=== PATIENT | male | born 1940 ===

== ENCOUNTER 2023-06-17 10:56 | Outpatient (RCR) | payer MEDICARE, SELFPAY | END 2023-06-18 23:59 | disposition home or self-care (01) | LOC: CR 10:56 | PROVIDERS: Visit Provider Internal Medicine Cardiovascular Disease | DX: I21.4 Non-ST elevation (NSTEMI) myocardial infarction (principal) ==

== ENCOUNTER 2023-07-15 10:19 | Outpatient (RCR) | payer MEDICARE, OTHER, SELFPAY | END 2023-07-19 23:59 | disposition home or self-care (01) | LOC: CR 10:19 | PROVIDERS: Visit Provider Internal Medicine Cardiovascular Disease | DX: I25.2 Old myocardial infarction (principal); Z95.2 Presence of prosthetic heart valve; Z51.89 Encounter for other specified aftercare | CPT/HCPCS: S9472 ==

== ENCOUNTER 2023-08-17 10:19 | Outpatient (RCR) | payer MEDICARE, OTHER, SELFPAY | END 2023-08-19 23:59 | disposition home or self-care (01) | LOC: CR 10:19 | PROVIDERS: Visit Provider Internal Medicine Cardiovascular Disease | DX: I25.2 Old myocardial infarction (principal); Z51.89 Encounter for other specified aftercare | CPT/HCPCS: S9472 ==

== ENCOUNTER 2023-09-11 10:24 | Outpatient (RCR) | payer MEDICARE, OTHER, SELFPAY | END 2023-09-17 23:59 | disposition home or self-care (01) | LOC: CR 10:24 | PROVIDERS: Visit Provider Internal Medicine Cardiovascular Disease | DX: I21.4 Non-ST elevation (NSTEMI) myocardial infarction (principal); Z51.89 Encounter for other specified aftercare | CPT/HCPCS: S9472 ==

== ENCOUNTER 2023-10-16 10:09 | Outpatient (RCR) | payer MEDICARE, OTHER, SELFPAY ==
--- NOTE | 2023-10-07 16:01 | NUR.NOTE ---
Nursing Note:Patient's resting BP noted to be low in CR. Patient notes he has drank minimal water today. Patient encouraged in drink water prior to exercise. Denies any dizziness but does c/o general fatigue. Discussed s/s to seek care urgently. Patient states understanding and will contact PCP. Nursing contacted PCP. States he hydrated and rechecked his BP around 1300 which was 96/57. States he is less fatigued and fells good. Also notes his PCP did reach out ot him and relayed this info to them.
== END 2023-10-18 23:59 | disposition home or self-care (01) ==
LOC: CR 10:09
PROVIDERS: Visit Provider Internal Medicine Cardiovascular Disease
DX: I21.4 Non-ST elevation (NSTEMI) myocardial infarction (principal); Z95.2 Presence of prosthetic heart valve; Z51.89 Encounter for other specified aftercare
CPT/HCPCS: S9472

== ENCOUNTER 2023-10-21 10:00 | Outpatient (RCR) | payer MEDICARE, OTHER, SELFPAY | END 2023-11-17 23:59 | disposition home or self-care (01) | LOC: CR 10:00 | PROVIDERS: Visit Provider Internal Medicine Cardiovascular Disease | DX: I21.4 Non-ST elevation (NSTEMI) myocardial infarction (principal); Z95.2 Presence of prosthetic heart valve; Z51.89 Encounter for other specified aftercare | CPT/HCPCS: S9472 ==